=== PATIENT | male | born 1985 | race Caucasian/White ===

== ENCOUNTER 2017-11-08 20:26 | Emergency (ER) | payer OTHER ==
--- NOTE | 2017-11-08 21:04 | RAD ---
FOUR VIEWS RIGHT KNEE: HISTORY: Injury. Pain. Twisting injury. FINDINGS: No joint effusion. Joint spaces are preserved. No fracture. IMPRESSION: No post traumatic change. POS: PPP
== END 2017-11-08 21:35 | disposition home or self-care (01) ==
LOC: SCSER 20:26
DX: S86.811A Strain of other muscle(s) and tendon(s) at lower leg level, right leg, initial encounter (principal); X50.1XXA Overexertion from prolonged static or awkward postures, initial encounter